=== PATIENT | female | born 1955 | race Asian ===

== ENCOUNTER 2018-02-12 14:02 | Emergency (ER) | payer OTHER ==
--- NOTE | 2018-02-12 15:00 | ED Physician Documentation ---
PD HPI HEADACHE - Stated complaint Stated Complaint: BABIN/ N/V HIGH BP - Chief complaint Chief Complaint: Cardiac - History obtained from History obtained from: Patient - History of Present Illness Timing - onset: How many days ago (3) Timing - onset during: Rest Timing - duration: Days (3) Timing - details: Gradual onset, Still present Worst headache ever?: No: Worst headache ever? Location: Right Quality: Throbbing Associated symptoms: Stiff neck. No: Fever, Nausea, Vomiting, Weakness, Numbness, Syncope, Seizure, Eye pain, Vision changes Improved by: Rest, Quiet Worsened by: Moving Contributing factors: No: Anticoagulated Similar symptoms before: Has not had sx before Recently seen: Not recently seen - Additional information Additional information: 62-year-old female with a history of hypertension who is on Metoprolol and lisinopril has developed a headache 3 days ago on the right side. She has had a bit of some pain in her neck radiating down into her shoulder as well. Today her blood pressure is elevated and she has this headache. She is perplexed by all this because she has been at the gym doing some weightlifting and she has been taking care of herself and she is expecting her blood pressure to go down. She denies any excessive stress or excessive salt load and she has been taking her blood pressure medication. She denies any aura before the onset of the headache. Review of Systems Constitutional: denies: Fever Eyes: denies: Decreased vision Ears: denies: Loss of hearing, Ear pain Nose: denies: Rhinorrhea / runny nose, Congestion Throat: denies: Sore throat Cardiac: denies: Chest pain / pressure, Palpitations Respiratory: denies: Dyspnea, Cough GI: denies: Abdominal Pain, Nausea, Vomiting : denies: Dysuria, Frequency Skin: denies: Rash Musculoskeletal: reports: Neck pain. denies: Back pain, Extremity pain Neurologic: reports: Headache. denies: Generalized weakness, Focal weakness, Numbness, Head injury, LOC PD PAST MEDICAL HISTORY - Past Medical History Past Medical History: Yes Cardiovascular: Hypertension - Past Surgical History Past Surgical History: Yes Ortho: Other - Present Medications Home Medications: Ambulatory Orders Medication Instructions Recorded Confirmed Aspirin [Children's Aspirin] 81 mg PO 02/12/18 Atorvastatin [Lipitor] 10 mg 02/12/18 Lisinopril mg PO 02/12/18 Metoprolol Tartrate 02/12/18 - Allergies Allergies/Adverse Reactions: Allergies Allergy/AdvReac Type Severity Reaction Status Date / Time No Known Drug Allergies Allergy Verified 02/12/18 14:18 - Social History Does the pt smoke?: No Smoking Status: Never smoker Does the pt drink ETOH?: No Does the pt have substance abuse?: No - Immunizations Immunizations are current?: Yes PD ED PE NORMAL - Vitals Vital signs reviewed: Yes (hypertensive ) - General General: Alert and oriented X 3, No acute distress, Well developed/nourished - HEENT HEENT: Atraumatic, PERRL, EOMI, Ears normal, Moist mucous membranes, Pharynx benign, Dentition benign - Neck Neck: Supple, no meningeal sign, No bony TTP, Other (There is point tenderness to the trapezius along the cervical spine and into the occiput. ) - Cardiac Cardiac: RRR, No murmur - Respiratory Respiratory: No respiratory distress, Clear bilaterally - Abdomen Abdomen: Soft, Non tender - Back Back: No CVA TTP, No spinal TTP - Derm Derm: Normal color, Warm and dry, No rash - Extremities Extremities: No deformity, No edema - Neuro Neuro: No motor deficit, No sensory deficit Eye Opening: Spontaneous Motor: Obeys Commands Verbal: Oriented GCS Score: 15 - Psych Psych: Normal mood, Normal affect Results - Vitals Vitals: Vital Signs - 24 hr 02/12/18 14:16 Temperature 36.1 C L Heart Rate 65 Respiratory 16 Rate Blood Pressure 190/87 H O2 Saturation 100 Oxygen O2 Source Room air Procedures - IVC sono (time) 1455 Bedside IVC sono: IVC measures (cm) (1.51), Euvolemia PD MEDICAL DECISION MAKING - ED course Complexity details: reviewed results, re-evaluated patient, considered differential, d/w patient ED course: 62-year-old female with history of hypertension has presented to the emergency department with a headache and elevation in her blood pressure. On evaluation she is found to have spasm of the trapezius as it inserts into the occiput and I suspect this is a blunt cause of her headache. She is treated in the emergency department with dexamethasone 10 mg orally and 60 mg of Toradol. I suspect the pain of the headache is related to the elevation in blood pressure. Departure - Departure Disposition: 01 Home, Self Care Clinical Impression: Occipital neuritis Condition: Stable Instructions: ED Headache Tension Follow-Up: SOLO CHUNG [Primary Care Provider] -
[2018-02-12] MEDS ORDERED: DEXAMETHASONE 10 MG/ML VIAL PO STA (15:07)
[2018-02-12] MEDS ORDERED: KETOROLAC 60 MG/2 ML VIAL IM STA (15:07)
[2018-02-12 15:51] VITALS: BP 181/90
== END 2018-02-12 15:52 | disposition home or self-care (01) ==
LOC: ED 14:02
DX: M79.2 Neuralgia and neuritis, unspecified (principal); I10 Essential (primary) hypertension; Z79.82 Long term (current) use of aspirin; E86.1 Hypovolemia
CPT/HCPCS: 96372; 99283

== ENCOUNTER 2019-09-28 17:27 | Emergency (ER) | payer OTHER ==
[2019-09-28 17:43] VITALS: BP 152/102
--- NOTE | 2019-09-28 17:52 | ED Physician Documentation ---
PD HPI HEENT - Stated complaint Stated Complaint: RT EAR/DIZZINESS/NAUSEA, HEADACHES - Chief complaint Chief Complaint: Heent - History obtained from History obtained from: Patient (64-year-old woman with history of hypertension has been sick for a week with congestion and runny nose, sinus pressure, right- sided ear pain and vertigo when she turns her head to the right. No weakness, numbness, tingling of the extremities or face. No fevers.) Review of Systems Constitutional: denies: Fever, Chills Eyes: denies: Photophobia Ears: reports: Loss of hearing, Ear pain. denies: Drainage/discharge Nose: reports: Rhinorrhea / runny nose Throat: denies: Sore throat PD PAST MEDICAL HISTORY - Past Medical History Cardiovascular: Hypertension - Past Surgical History Past Surgical History: Yes Ortho: Other - Present Medications Home Medications: Ambulatory Orders Medication Instructions Recorded Confirmed Aspirin [Children's Aspirin] 81 mg PO 02/12/18 Atorvastatin [Lipitor] 10 mg 02/12/18 Metoprolol Tartrate 02/12/18 lisinopriL [Lisinopril] mg PO 02/12/18 Amoxicillin 500 mg PO TID #30 capsule 09/28/19 Meclizine HCl 25 mg PO Q6H PRN #15 tab.chew 09/28/19 Mometasone Furoate [Nasonex] 1 spray NS BID #1 spray.pump 09/28/19 - Allergies Allergies/Adverse Reactions: Allergies Allergy/AdvReac Type Severity Reaction Status Date / Time No Known Drug Allergies Allergy Verified 09/28/19 17:40 - Social History Does the pt smoke?: No Smoking Status: Never smoker Does the pt drink ETOH?: No Does the pt have substance abuse?: No - Immunizations Immunizations are current?: Yes PD ED PE NORMAL - Vitals Vital signs reviewed: Yes - General General: Alert and oriented X 3, No acute distress - HEENT HEENT: PERRL, EOMI, Other (She is tender over the right maxillary sinus and has moderate right Otitis media. Pharynx and left TM is normal.) - Neck Neck: Supple, no meningeal sign, No bony TTP - Neuro Neuro: Alert and oriented X 3, loom checker 2-12 intact, No motor deficit, No sensory deficit, Normal speech Results - Vitals Vitals: Vital Signs - 24 hr 09/28/19 17:41 Temperature 36.8 C Heart Rate 74 Respiratory 18 Rate Blood Pressure 152/102 H O2 Saturation 97 Oxygen O2 Source Room air PD MEDICAL DECISION MAKING - ED course ED course: 64-year-old woman with right otitis media and resultant vertigo. She is administered steroid nasal spray, antibiotics, and meclizine. Departure - Departure Disposition: 01 Home, Self Care Clinical Impression: ROM (right otitis media) Qualifiers: Otitis media type: suppurative Chronicity: acute Recurrence: non-recurrent Spontaneous tympanic membrane rupture: without spontaneous rupture Qualified Code(s): H66.001 - Acute suppurative otitis media without spontaneous rupture of ear drum, right ear Condition: Good Record reviewed to determine appropriate education?: Yes Instructions: ED Otitis Media Acute Adult Prescriptions: Amoxicillin 500 mg PO TID #30 capsule Meclizine HCl 25 mg PO Q6H PRN #15 tab.chew PRN Reason: Dizziness Mometasone Furoate [Nasonex] 1 spray NS BID #1 spray.pump Comments: Follow-up with your doctor in about a week. Return for new or worsening symptoms.
== END 2019-09-28 17:57 | disposition home or self-care (01) ==
LOC: ED 17:27
DX: H66.001 Acute suppurative otitis media without spontaneous rupture of ear drum, right ear (principal); R42 Dizziness and giddiness; I10 Essential (primary) hypertension; Z79.899 Other long term (current) drug therapy; Z79.82 Long term (current) use of aspirin
CPT/HCPCS: 99283; 99284

== ENCOUNTER 2023-08-17 14:38 | Emergency (ER) | payer MEDICARE, OTHER ==
--- NOTE | 2023-08-17 15:55 | ED Physician Documentation ---
PD HPI FOCAL NEURO - Stated complaint Stated Complaint: BILAT EAR PX/VOMITING - Chief complaint Chief Complaint: Neuro - History obtained from History obtained from: Patient - Additional information Additional information: 68-year-old woman with history of hypertension has recurrent ear infections developed right ear pressure with vertigo and intermittent vomiting today. No neurologic symptoms such as weakness, numbness, tingling, discoordination. No headache. No fevers. PD PAST MEDICAL HISTORY - Past Medical History Past Medical History: Yes Cardiovascular: Hypertension - Past Surgical History Past Surgical History: Yes Ortho: Other - Present Medications Home Medications: Ambulatory Orders Medication Instructions Recorded Confirmed Aspirin [Children's Aspirin] 81 mg PO 02/12/18 Atorvastatin [Lipitor] 10 mg 02/12/18 Metoprolol Tartrate 02/12/18 lisinopriL [Lisinopril] mg PO 02/12/18 Amoxicillin 500 mg PO TID #30 capsule 09/28/19 Meclizine HCl 25 mg PO Q6H PRN #15 tab.chew 09/28/19 Mometasone Furoate [Nasonex] 1 spray NS BID #1 spray.pump 09/28/19 Azithromycin [Zithromax] 1 tab PO DAILY #6 tablet 08/17/23 Meclizine HCl [Motion Sickness] 25 mg PO Q6H PRN #20 tablet 08/17/23 Ondansetron Odt [Zofran] 4 mg TL Q6H PRN #10 tablet 08/17/23 - Allergies Allergies/Adverse Reactions: Allergies Allergy/AdvReac Type Severity Reaction Status Date / Time codeine Allergy Rash Verified 08/17/23 14:48 Penicillins Allergy Unknown Verified 08/17/23 14:48 - Social History Does the pt smoke?: No Smoking Status: Never smoker Does the pt drink ETOH?: No Does the pt have substance abuse?: No - Immunizations Immunizations are current?: Yes - POLST Patient has POLST: No PD ED PE NORMAL - Vitals Vital signs reviewed: Yes - General General: Alert and oriented X 3, No acute distress - HEENT HEENT: Other (Moderate right otitis media, no nystagmus, normal cranial nerve testing) - Neck Neck: Supple, no meningeal sign, No bony TTP - Neuro Neuro: Alert and oriented X 3, cook mayonnaise 2-12 intact, No motor deficit, No sensory deficit, Normal speech, Other (Normal [id number] and lrvb-[id number] testing, n ormal gait) Eye Opening: Spontaneous Motor: Obeys Commands Verbal: Oriented GCS Score: 15 - Psych Psych: Normal mood, Normal affect Results - Vitals Vitals: Vital Signs - 24 hr 08/17/23 14:43 Temperature 36.9 C Heart Rate 104 H Respiratory 16 Rate Blood Pressure 189/94 H O2 Saturation 99 Oxygen O2 Source Room air PD Medical Decision Making - ED course ED course: She has right otitis media causing vertigo. No neurologic findings to suggest a central cause of vertigo. No amoxicillin as she allergic to penicillin. Departure - Departure Disposition: Home, Self Care Clinical Impression: ROM (right otitis media) Qualifiers: Otitis media type: suppurative Chronicity: acute Recurrence: recurrent Spontaneous tympanic membrane rupture: without spontaneous rupture Qualified Code(s): H66.004 - Acute suppurative otitis media without spontaneous rupture of ear drum, recurrent, right ear Condition: Good Record reviewed to determine appropriate education?: Yes Instructions: ED Otitis Media Acute Adult Prescriptions: Meclizine HCl [Motion Sickness] 25 mg PO Q6H PRN #20 tablet PRN Reason: Dizziness Azithromycin [Zithromax] 1 tab PO DAILY #6 tablet Ondansetron Odt [Zofran] 4 mg TL Q6H PRN #10 tablet PRN Reason: Nausea / Vomiting Comments: I sent your prescriptions electronically to the [facility] in [place]. Call your doctor to arrange a follow-up appointment, make the next available appointment. In the interim, return anytime if worse or if new symptoms develop. Forms: PCP List
[2023-08-17 16:12] VITALS: BP 178/90; O2SAT 98
== END 2023-08-17 16:07 | disposition home or self-care (01) ==
LOC: ED 14:38
DX: H66.004 Acute suppurative otitis media without spontaneous rupture of ear drum, recurrent, right ear (principal); I10 Essential (primary) hypertension
CPT/HCPCS: 99283

== ENCOUNTER 2023-12-08 10:33 | Outpatient (CLI) | payer MEDICARE, OTHER ==
--- NOTE | 2023-12-08 12:56 | DEXA Report ---
PROCEDURE: Dexa Spine and/or Hip INDICATIONS: POST MENOPAUSAL TECHNIQUE: Dual energy x-ray absorptiometry (DXA) was performed on a [employer] System. Regions measur ed are the AP Spine, femoral neck, and if needed forearm. COMPARISON: None FINDINGS: Lumbar Spine: Bone Mineral Density: 1.164 g/cm/cm,T score: -0.1. Left Femoral Neck: Bone Mineral Density: 0.925 g/cm/cm, T score: -0.8. Left Hip: Bone Mineral Density: 1.0 to g/cm/cm,T score: 0.2. (T score greater or equal to -1.0: NORMAL) (T score from -1.1 to -2.4: OSTEOPENIA) (T score less than or equal to -2.5 to: OSTEOPOROSIS) Impression: By WHO criteria, this patient has normal bone density. Patients with diagnosis of osteoporosis or osteopenia should have regular bone mineral density assess ment. For those eligible for Medicare, routine testing is allowed once every 2 years. Testing frequ ency can be increased for patients who have rapidly progressing disease or for those who are receivin g medical therapy to restore bone mass. Reviewed by: Shiela Lyles MD on 12/08/2023 12:55 PM PDT Approved by: Shiela Lyles MD on 12/08/2023 12:55 PM PDT Station ID: [id number]
== END 2023-12-08 10:34 | disposition home or self-care (01) ==
LOC: DI 10:33
PROVIDERS: ATTEND Physician Assistant
DX: N95.8 Other specified menopausal and perimenopausal disorders (principal)

== ENCOUNTER 2023-12-08 11:00 | Outpatient (CLI) | payer MEDICARE, OTHER ==
--- NOTE | 2023-12-14 10:11 | Mammography Report ---
BILATERAL DIGITAL SCREENING MAMMOGRAM 3D/2D WITH EXAGGERATED CC: 12/08/2023 CLINICAL: Routine screening. Comparison is made to exams dated: 05/15/2021 mammogram - [facility], 07/06/2018 mammogram, and mammogram - [facility]. There are scattered areas of fibroglandular density in both breasts (category b / 25%-50% glandular t issue). There are benign vascular calcifications in both breasts. No significant masses, calcifications, or other findings are seen in either breast. There has been no significant interval change. IMPRESSION: BENIGN There is no mammographic evidence of malignancy. A 1 year screening mammogram is recommended. Based on the Tyrer Cuzick model (a risk assessment model) the patient's lifetime risk is 3.2% and her 10 year risk is 2.0%. According to the ACR, ACS, and NCCN guidelines, an annual breast MRI exam shanita g with mammogram is recommended if the patient's lifetime risk is 20% or greater. This exam was interpreted at Station ID: [id number]. NOTE: For mammograms, a report in lay terms will be sent to the patient. Approximately 15% of breast malignancies will not be visualized mammographically. In the management of a palpable breast mass, a negative mammogram must not discourage biopsy of a clinically suspicious lesion. Electronically Signed By: Phill palacio/laurent:12/13/2023 16:15:53 letter sent: No_Letter ACR BI-RADS Category 2: Benign Finding(s) 3342F PARENCHYMAL PATTERN: (A) - The breast(s) demonstrate(s) scattered fibroglandular densities. BI-RADS CATEGORY: (2) - 2 RECOMMENDATION: (ANNUAL) - Recommend routine annual screening mammography. [id number] 1 year screening LATERALITY: (B)
== END 2023-12-08 11:01 | disposition home or self-care (01) ==
LOC: DI 11:00
PROVIDERS: ATTEND Physician Assistant
DX: Z12.31 Encounter for screening mammogram for malignant neoplasm of breast (principal); R92.323 Mammographic fibroglandular density, bilateral breasts; R92.1 Mammographic calcification found on diagnostic imaging of breast

== ENCOUNTER 2024-04-27 15:50 | Emergency (ER) | payer MEDICARE, OTHER ==
--- NOTE | 2024-04-27 16:25 | ED Physician Documentation ---
History of Present Illness - Stated complaint Stated Complaint: DIZZY/R EAR PX - Chief complaint Chief Complaint: General - History obtained from History obtained from: Patient - History of Present Illness Timing: Prior to arrival - Additonal information Additional information: Patient is a 68-year-old female generally healthy does not take medications at home presents to the emergency department with right ear pain and feelings of dizziness and nausea that started this morning. Patient also reporting slight headache from the right side of her nose to her right ear. Patient notes she often wakes up daily with sinus congestion and "nasal dripping." She notes she had similar episode of ear pain and dizziness back in September but was significantly worse she felt as if she could not walk at the time she was noted to have an ear infection and symptoms feel similar today. She denies any neck pain no fevers no sore throat. She has been eating and drinking well at home. No vomiting. PD PAST MEDICAL HISTORY - Past Medical History Cardiovascular: Hypertension - Past Surgical History Past Surgical History: Yes Ortho: Other - Present Medications Home Medications: Ambulatory Orders Medication Instructions Recorded Confirmed Atorvastatin [Lipitor] 10 mg PO DAILY 02/12/18 04/27/24 lisinopriL [Lisinopril] 10 mg PO DAILY 02/12/18 04/27/24 Meclizine HCl 25 mg PO Q6H PRN #15 tab.chew 09/28/19 04/27/24 Azithromycin [Zithromax] 1 tab PO DAILY #6 tablet 04/27/24 Fluticasone [Flonase] 1 sprays ABDIRAHMAN DAILY #16 gm 04/27/24 metFORMIN [Glucophage] 500 mg PO BID 04/27/24 04/27/24 - Allergies Allergies/Adverse Reactions: Allergies Allergy/AdvReac Type Severity Reaction Status Date / Time codeine Allergy Rash Verified 04/27/24 16:11 Penicillins Allergy Unknown Verified 04/27/24 16:11 - Social History Does the pt smoke?: No Smoking Status: Never smoker Does the pt drink ETOH?: No Does the pt have substance abuse?: No - Immunizations Immunizations are current?: Yes - POLST Patient has POLST: No PD ED PE NORMAL - Vitals Vital signs reviewed: Yes - General General: Alert and oriented X 3 - HEENT HEENT: Atraumatic, Other (No significant mastoid tenderness right ear does show serous fluid behind right ear with some mild erythema to right tympanic membrane no significant bulging left ear does not appear significantly erythematous however there is some serous fluid noted behind left ear. Bilateral nasal congestion appr) - Cardiac Cardiac: RRR, No murmur, No gallop - Abdomen Abdomen: Normal bowel sounds - Derm Derm: Normal color, No rash - Neuro Neuro: Alert and oriented X 3 (Patient able to walk in straight line here in the emergency department [id number] test intact and no appreciable nystagmus with cranial nerves III through XII intact on neuroexam. Strength intact in upper and lower extremities. Negative Romberg sign.) Results - Vitals Vitals: Vital Signs - 24 hr 04/27/24 16:06 Temperature 36.8 C Heart Rate 104 H Respiratory 18 Rate Blood Pressure 161/95 H O2 Saturation 98 Oxygen O2 Source Room air PD Medical Decision Making - ED course Complexity details: reviewed old records ED course: Patient is a 68-year-old healthy female presenting to the emergency department with dizziness right ear pain some mild nausea but no vomiting. She denies any fevers or chills woke up today with some worsening right ear pain that has progressively worsened over the last day. Patient notes similar symptoms over 3 months ago she was diagnosed with an ear infection at the time and took some antibiotics and felt significantly better. Patient notes similar symptoms today. Vitals are reassuring here in the emergency department. Physical exam shows no focal neurodeficits stable gait on ambulation no appreciable next documents and negative Romberg sign. Right ear does show mild erythema with serous fluid behind it and bilateral nasal congestion. Given these findings concern for possible right ear infection was secondary to nasal congestion. Will give patient course of fluticasone to help with nasal congestion and have patient started on antibiotic to help with ear pain and acute otitis media. Instructed patient to follow-up with PCP in outpatient setting and to return to the emergency department with any new or worsening symptoms. Departure - Departure
[2024-04-27 17:15] VITALS: BP 151/89; O2SAT 97
== END 2024-04-27 17:10 | disposition home or self-care (01) ==
LOC: ED 15:50
DX: H66.91 Otitis media, unspecified, right ear (principal); R09.81 Nasal congestion; I10 Essential (primary) hypertension; Z79.899 Other long term (current) drug therapy
CPT/HCPCS: 99282; 99283